=== PATIENT | male | born 1945 | race Caucasian/White ===

== ENCOUNTER → 2020-09-05 | Day surgery (SDC) | payer MEDICARE, SELFPAY ==
[~2020-09-05] MED LIST: CEFUROXIME500 MG PO; FERROUS SULFAT325 MG PO; GLIMEPIRIDE4 MG PO; JANUVIA100 MG PO; LASIX20 MG PO; LEVOFLOXACIN500 MG PO; LISINOPRIL40 MG PO; NORVASC5 MG PO; OMEPRAZOLE20 M1 PO; OXYCODONE HCL10 MG PO; PRAVASTATIN SOD10 MG PO; PROAIR HFA8.5 GM INH; SYMBICORT 160-1 INHA INH; TRAMADOL HCL50 MG PO; VALSARTAN160 MG PO; VICTOZA 1818 MG/3 ML SC; VITAMIN B-121000 MC3 INJ; VITAMIN B12 INJ; VITAMIN D PO
== END | disposition home or self-care (01) ==
LOC: OR 05:49
DX: R91.8 Other nonspecific abnormal finding of lung field (principal); I11.0 Hypertensive heart disease with heart failure; I50.32 Chronic diastolic (congestive) heart failure; E11.9 Type 2 diabetes mellitus without complications; J44.9 Chronic obstructive pulmonary disease, unspecified; E78.5 Hyperlipidemia, unspecified; E66.9 Obesity, unspecified; K21.9 Gastro-esophageal reflux disease without esophagitis; J84.112 Idiopathic pulmonary fibrosis; D49.4 Neoplasm of unspecified behavior of bladder; Z79.82 Long term (current) use of aspirin; Z79.899 Other long term (current) drug therapy; Z80.9 Family history of malignant neoplasm, unspecified; Z87.891 Personal history of nicotine dependence
CPT/HCPCS: 71045; 76000; 82962; J2704; J7120

== ENCOUNTER → 2020-10-03 | Outpatient (CLI) | payer MEDICARE, SELFPAY ==
[2020-10-03 10:56] LABS: HEMOGLOBIN 14.2 gm/dl (14.0-17.5); RED BLOOD COUNT 4.9 M/UL (4.20-5.50); WHITE BLOOD COUNT 10.2 K/UL (4.5-11.0)
[2020-10-03 11:32] LABS: BUN/CREATININE RATIO 13 (0-10)
== END ==
LOC: OPSV2 09:43
PROVIDERS: Surgery
DX: Z01.818 Encounter for other preprocedural examination (principal); R91.1 Solitary pulmonary nodule; R94.31 Abnormal electrocardiogram [ECG] [EKG]; Z20.822 Contact with and (suspected) exposure to COVID-19
CPT/HCPCS: 36415; 80048; 85025; 85610; 85730; 93005; U0003

== ENCOUNTER 2020-10-07 06:01 | Inpatient (IN) | payer MEDICARE, SELFPAY, OTHER ==
[~2020-10-07] VITALS: Ht 165.1 cm; Wt 116.1 kg
[~2020-10-07 06:01] MED LIST changes: -CEFUROXIME500 MG PO; -LEVOFLOXACIN500 MG PO; -SYMBICORT 160-1 INHA INH; -VITAMIN B12 INJ
[2020-10-07] MEDS ORDERED: VITAMIN B12 INJ (07:13)
[2020-10-08 05:36] LABS: HEMOGLOBIN 12.9 gm/dl (14.0-17.5); RED BLOOD COUNT 4.52 M/UL (4.20-5.50); WHITE BLOOD COUNT 17.9 K/UL (4.5-11.0)
[2020-10-09 05:32] LABS: HEMOGLOBIN 12.2 gm/dl (14.0-17.5); RED BLOOD COUNT 4.23 M/UL (4.20-5.50); WHITE BLOOD COUNT 17.4 K/UL (4.5-11.0)
[2020-10-10 05:57] LABS: HEMOGLOBIN 10.9 gm/dl (14.0-17.5); RED BLOOD COUNT 3.91 M/UL (4.20-5.50)
[2020-10-10 05:59] LABS: WHITE BLOOD COUNT 10.7 K/UL (4.5-11.0)
[2020-10-11 05:31] LABS: HEMOGLOBIN 11.3 gm/dl (14.0-17.5); RED BLOOD COUNT 4.07 M/UL (4.20-5.50); WHITE BLOOD COUNT 9.5 K/UL (4.5-11.0)
[2020-10-11 06:00] LABS: BUN/CREATININE RATIO 21 (0-10)
--- NOTE | 2020-10-11 16:56 | NUR ---
[facility] AFTER HOURS CONTACTED TO LET THEM KNOW PATIENT WSS DICHARGING IN THE MORNING AND WOULD NEED PORTABLE OXYGEN TANK. SPOKE WITH GENTLEMAN FROM PHONE # [phone] AND HE IS GOING TO BRING TANK TO HOSPITAL. STATED THAT HE DIDNT HAVE ANY PAPERWORK ON PATIENT. LEFT VOICEMAIL WITH ALESSANDRA HOWARDPOWER REACTOR OPERATOR.
--- NOTE | 2020-10-11 17:15 | NUR ---
[facility] CONTACTED. LEFT VOICEMAIL WITH EMPLOYEE COUNSELOR NURSE TO CALL ME BACK REGARDING PATIENTS HOME CARE BECAUSE PLAN IS FOR PATIENT TO GO HOME TOMORROW.
--- NOTE | 2020-10-11 18:27 | NUR ---
ESDRAS FROM [facility] AT PATIENT ROOM TO DELIVER PORTABLE OXYGEN TANK. STATED THAT [facility] HAD NOT RECIEVED ANY PAPERWORK FROM THE HOSPITAL. EXPLAINED THAT THERE IS NO LONGER A [facility] IN [place] AND THAT [facility] BOUGHT THEM OUT IN [place]. STATED TO CONTACT [facility] TO SEE IF THEY RECIEVED THE PAPERWORK THAT WAS SENT PER [employer] ON TUESDAY. IF PAPERWORK WAS NOT RECIEVED THROUGH [facility], ESDRAS SAID THAT [facility] COULD TAKE OVER THE CASE. SAID TO CONTACT HIM TOMORROW [phone]. REGARDLESS PATIENT IS ABLE TO TAKE HOME TANK THAT [facility] PER ESDRAS
[2020-10-12 05:11] LABS: BUN/CREATININE RATIO 21 (0-10)
--- NOTE | 2020-10-12 08:58 | NUR ---
LEFT MESSAGE WITH HAND WINDER NURSE ON VOICEMAIL AT [facility] TO CALL BACK DENYS REGARDING CARE OF PATIENT.
--- NOTE | 2020-10-12 09:07 | NUR ---
[facility] IN [place] CONTACTED INSTRUCTED BY ESDRAS AT [facility]. SPOKE WITH CALL CENTER AND SOMEONE FROM [facility] IS TO RETURN MY CALL.
--- NOTE | 2020-10-12 09:36 | NUR ---
SPOKE WITH MAGGIE FROM [facility] AND SHE STATED THAT PATIENT WOULD BE EVALUTATED TOMORROW 10/13/20 (IF DISCHARGED TODAY) AT HIS HOME. SOMEONE FROM [facility] WILL CONTACT PATIENT BEFORE ARRIVAL. HH WILL NEED DISCHARGE SUMMARY FAXED TO [phone] [employer]
--- NOTE | 2020-10-12 09:57 | NUR ---
GILBERT FROM [facility] IN [place] RETURNED PHONE CALL. STATED THEY HAD NO PAPER WORK FROM CURRENT HOSPITAL STAY ON PATIENT. STATED THAT PATIENT COULD BE SET UP WITH HOME OXYGEN TODAY. NEEDED DOCUMENTS FAXED TO [facility]. I WILL CALL GILBERT UPON PATIENTS DISCHARGE HOME TODAY: GILBERT- [phone]
--- NOTE | 2020-10-12 10:43 | NUR ---
LEFT VOICEMAIL MESSAGE ON [employer] PHONE FROM [employer] TO CALL BACK FOR NURSING REPORT ON PATIENT. MAGGIE- [phone]
[2020-10-12] MEDS ORDERED: LEVOFLOXACIN500 MG PO (10:51)
[2020-10-12] MEDS ORDERED: PROAIR HFA8.5 GM INH (12:21)
[2020-10-12] MEDS ORDERED: SYMBICORT 160-1 INHA INH (12:21)
[2020-10-12] MEDS ORDERED: CEFUROXIME500 MG PO (13:01)
== END 2020-10-12 13:40 | disposition home or self-care (01) | DRG 163 ==
LOC: OR 06:01 → CCU 10:00
PROVIDERS: Internal Medicine; Internal Medicine Nephrology; Physician Assistant; ADMIT Surgery
PROC: 07T70ZZ Resection of Thorax Lymphatic, Open Approach (ICD-10-PCS; 2020-10-07)
PROC: 07B70ZX Excision of Thorax Lymphatic, Open Approach, Diagnostic (ICD-10-PCS; 2020-10-07)
PROC: 3E033XZ Introduction of Vasopressor into Peripheral Vein, Percutaneous Approach (ICD-10-PCS; 2020-10-07)
PROC: 0BBJ0ZZ Excision of Left Lower Lung Lobe, Open Approach (ICD-10-PCS; principal; 2020-10-07 07:30)
DX: C34.32 Malignant neoplasm of lower lobe, left bronchus or lung (principal); R57.1 Hypovolemic shock; J96.01 Acute respiratory failure with hypoxia; J18.9 Pneumonia, unspecified organism; N17.0 Acute kidney failure with tubular necrosis; N17.9 Acute kidney failure, unspecified; Z68.41 Body mass index [BMI] 40.0-44.9, adult; I50.32 Chronic diastolic (congestive) heart failure; E87.1 Hypo-osmolality and hyponatremia; C77.1 Secondary and unspecified malignant neoplasm of intrathoracic lymph nodes; E11.9 Type 2 diabetes mellitus without complications; I95.9 Hypotension, unspecified; K21.9 Gastro-esophageal reflux disease without esophagitis; D72.829 Elevated white blood cell count, unspecified; E66.01 Morbid (severe) obesity due to excess calories; D50.9 Iron deficiency anemia, unspecified; J44.9 Chronic obstructive pulmonary disease, unspecified; I11.0 Hypertensive heart disease with heart failure; M54.5 Low back pain; J84.112 Idiopathic pulmonary fibrosis; E78.5 Hyperlipidemia, unspecified; E87.6 Hypokalemia; J98.2 Interstitial emphysema; Z99.81 Dependence on supplemental oxygen; Z88.5 Allergy status to narcotic agent; Z88.2 Allergy status to sulfonamides; Z88.8 Allergy status to other drugs, medicaments and biological substances; Z87.891 Personal history of nicotine dependence; Z80.3 Family history of malignant neoplasm of breast; Z80.1 Family history of malignant neoplasm of trachea, bronchus and lung; Z80.41 Family history of malignant neoplasm of ovary
CPT/HCPCS: 36415; 71045; 80048; 80053; 81001; 82570; 82962; 83036; 84133; 84156; 84300; 85025; 86850; 86900; 86901; 86920; 88341; 88342; 89050; 94640; 94664; 94760; 97116-GP-CQ; 97162; J0690; J1100; J1170; J1940; J1956; J2001; J2060; J2405; J2704; J3010; J7030; J7040; J7050; J7120; P9047

== ENCOUNTER → 2020-10-29 | Outpatient (CLI) | payer MEDICARE ==
[~2020-10-29] MED LIST changes: +CEFUROXIME500 MG PO; +LEVOFLOXACIN500 MG PO; +SYMBICORT 160-1 INHA INH; +VITAMIN B12 INJ
== END ==
LOC: MRI 12:59
DX: C34.32 Malignant neoplasm of lower lobe, left bronchus or lung (principal); I67.82 Cerebral ischemia
CPT/HCPCS: 70553; A9577

== ENCOUNTER → 2020-11-12 | Day surgery (SDC) | payer MEDICARE | END | disposition home or self-care (01) | LOC: OR 06:24 | DX: C34.92 Malignant neoplasm of unspecified part of left bronchus or lung (principal); E78.5 Hyperlipidemia, unspecified; K21.9 Gastro-esophageal reflux disease without esophagitis; I11.0 Hypertensive heart disease with heart failure; I50.32 Chronic diastolic (congestive) heart failure; G47.34 Idiopathic sleep related nonobstructive alveolar hypoventilation; E66.9 Obesity, unspecified; J44.9 Chronic obstructive pulmonary disease, unspecified; E11.9 Type 2 diabetes mellitus without complications; Z68.39 Body mass index [BMI] 39.0-39.9, adult; Z79.84 Long term (current) use of oral hypoglycemic drugs; Z79.899 Other long term (current) drug therapy; Z87.891 Personal history of nicotine dependence; Z88.2 Allergy status to sulfonamides; Z88.5 Allergy status to narcotic agent; Z88.6 Allergy status to analgesic agent | CPT/HCPCS: 71045; 77001; 82962; C1769; C1788; J0690; J1100; J1200; J1642; J2405; J2704; J3010; J7040; J7120 ==